=== PATIENT | female | born 1990 | race Hispanic/Latino ===

== ENCOUNTER 2017-02-28 09:06 | Inpatient (IN) | payer OTHER ==
[~2017-02-28] VITALS: Ht 154.9 cm; Wt 108.0 kg
--- OUTSIDE RECORDS SUMMARY | ~2017-02-28 | XMS ---
Demographics + + + | Address | [facility] [address] | | | [place] [address] | + + + | Preferred Language [...] + + + | Address | [address] | | | [place] [address] | + + + | Phone | | + + + Care Team Providers + + + + | Care Business Banking Sales Assistant Name | Role | Phone | + + + + Unavailable | Unavailable | + + + + PROBLEMS +---------+ + + +--------+ + + | Type | Condition | ICD9-CM | [id number] | Onset | Condition | SNOMED | | | | Code | Code | Dates | Status | Code | +---------+ + + +--------+ + + | Problem | Encounter | Z34.90 | | | Active | [id number] | | | for | | | [...] available PLAN OF CARE VITAL SIGNS MEDICATIONS + + + + + + + +--------+ | Medicati | Instruct | Dosage | Frequenc | Start | End Date | Duration | Status | | on | ions | | y | Date | | | | + + + + + + + +--------+ | Accu-Valencia | | as | | Jan, | | 99 | Active | | k Tessa | | directed | | 2016 | | | | | Plus | | | | | | | | | w/Device | | | | | | | | + + + + + + + +--------+ | Lancets | | as | | 22 Herman, | | 30 | Active | | - | | directed | | 2016 | | day(s) | | + + + + + + + +--------+ | Lancet | | as | | [address], | | 99 | Active | | Device - | | directed | | 2016 | | | | + + + + + + + +--------+ | Accu-Valencia | In Vitro | as | | 22 Herman, | | 1 month | Active | | k Tessa | four | directed | | 2016 | | | | | Plus - | times | | | | | | | | | daily | | | | | | | + + + + + + + +--------+ RESULTS No Results PROCEDURES No Known procedures IMMUNIZATIONS No Known Immunizations"
--- OUTSIDE RECORDS SUMMARY | ~2017-02-28 | XMS ---
Demographics + + + | Address | [facility] [address] | | | [place] [address] | + + + | Preferred Language | Unknown | + + + | Marital Status | Unknown | + + + | Oriental Orthodox Affiliation | Unknown | + + + | Race | Unknown | + + + | Ethnic Group | Unknown | + + + Author + + + | Author | [facility] | + + + | Organization | [facility] | + + + | Address | [address] | | | [place] [address] | + + + | Phone | | + + + Care Team Providers + + + + | Care Health Care Marketing Manager Name | Role | Phone | + + + + Unavailable | Unavailable | + + + + PROBLEMS +---------+ + + +--------+ + + | Type | Condition | ICD9-CM | [id number] | Onset | Condition | SNOMED | | | | Code | Code | Dates | Status | Code | +---------+ + + +--------+ + + | Problem | Encounter | Z34.90 | | | Active | [id number] | | | for | | | [...]
--- OUTSIDE RECORDS SUMMARY | ~2017-02-28 | XMS ---
Demographics + + + | Address | [facility] [address] | | | [place] [address] | + + + | Preferred Language | Unknown | + + + | Marital Status | Unknown | + + + | Christian Affiliation | Unknown | + + + | Race | Unknown | + + + | Ethnic Group | Unknown | + + + Author + + + | Author | [facility] | + + + | Organization | [facility] | + + + | Address | [address] | | | [place] [address] | + + + | Phone | | + + + Care Team Providers + + + + | Care Pattern Grader Name | Role | Phone | + + + + Unavailable | Unavailable | + + + + PROBLEMS +---------+ + + +--------+ + + | Type | Condition | ICD9-CM | [id number] | Onset | Condition | SNOMED | | | | Code | Code | Dates | Status | Code | +---------+ + + +--------+ + + | Problem | Encounter | Z34.90 | | | Active | [id number] | | | for | | | [...]
[~2017-02-28 09:06] MED LIST: GLYBURIDE1.25 MG PO
== END 2017-03-01 16:50 | disposition home or self-care (01) | DRG 775 ==
LOC: FBCO 09:06 → FBC 09:20
PROVIDERS: ADMIT Obstetrics & Gynecology
PROC: 10E0XZZ Delivery of Products of Conception, External Approach (ICD-10-PCS; principal; 2017-02-28)
PROC: 3E0S3BZ Introduction of Anesthetic Agent into Epidural Space, Percutaneous Approach (ICD-10-PCS; 2017-02-28)
PROC: 00HU03Z Insertion of Infusion Device into Spinal Canal, Open Approach (ICD-10-PCS; 2017-02-28)
DX: O60.14X0 Preterm labor third trimester with preterm delivery third trimester, not applicable or unspecified (principal); O69.81X0 Labor and delivery complicated by cord around neck, without compression, not applicable or unspecified; Z3A.36 36 weeks gestation of pregnancy; Z37.0 Single live birth; O24.425 Gestational diabetes mellitus in childbirth, controlled by oral hypoglycemic drugs; O42.013 Preterm premature rupture of membranes, onset of labor within 24 hours of rupture, third trimester
CPT/HCPCS: 01960; 36415; 85027; J2590; J2795; J7120

== ENCOUNTER 2017-10-29 17:39 | Emergency (ER) | payer OTHER ==
[~2017-10-29] VITALS: Ht 154.9 cm; Wt 107.5 kg
--- OUTSIDE RECORDS SUMMARY | 2017-10-29 18:13 | XMS | Clinical Summary ---
Demographics + + + | Address | [address] | | | [place] [address] | + + + | Home Phone | | + + + | Preferred Language | Unknown | + + + | Marital Status | Unknown | + + + | Orthodox Affiliation | Unknown | + + + | Race | Unknown | + + + | Ethnic Group | Unknown | + + + Author + + + | Author | [facility] | + + + | Organization | [facility] | + + + | Address | Unknown | + + + | Phone | Unavailable | + + + Care Team Providers + +------+ + | Care Wool Merchant Name | Role | Phone | + +------+ + | Unknown, Physician | PP | Unavailable | + +------+ + Allergies Not on File Current Medications Not on file Active Problems + + + | Problem | Noted Date | + + + | Abnormal findings on screening of mother | 08/21/2014 | + + + + + | Overview: Pt with elevated Down's risk on quad screen | | (1:31)US showed shortened FL and HLNIPS drawnPt counseled for | | over 50% of total face to face time of 30 min Last Assessment & | | Plan: Pt with elevated Down's risk on quad screen (1:31)US | | showed shortened FL and HLNIPS drawnPt counseled for over 50% of | | total face to face time of 30 min | |NIPS drawn | |Pt counseled for over 50% of total face to face time of 30 min | + + Social History + +-------+ +--------+------+ | Tobacco Use | Types | Packs/Day | Years | Date | | | | | Used | | + +-------+ +--------+------+ | Never Assessed | | | | | + +-------+ +--------+------+ + + + | Sex Assigned at | Date Recorded | | | | + + + | Not on file | | + + + Plan of Treatment + + + + + | Health Maintenance | Due Date | Last Done | Comments | + + + + + | HIV Screening | | | | | | 4 | | | + + + + + | Tetanus | | | | | | 8 | | | + + + + + | Cervical Cancer | | | | | Screening | 0 | | | + + + + + | IMM Influenza (#1) | | | | | | 7 | | | + + + + + Results Not on filefrom Last 3 Months"
--- OUTSIDE RECORDS SUMMARY | 2017-10-29 18:13 | XMS ---
Demographics + + + | Address | [facility] [address] | | | [place] [address] | + + + | Preferred Language | Unknown | + + + | Marital Status | Unknown | + + + | Catholic Affiliation | Unknown | + + + | Race | Unknown | + + + | Ethnic Group | Unknown | + + + Author + + + | Author | [facility] | + + + | Organization | [facility] | + + + | Address | [address] | | | [place] [address] | + + + | Phone | | + + + Care Team Providers + + + + | Care Legal Instructor Name | Role | Phone | + + + + Unavailable | Unavailable | + + + + PROBLEMS +---------+ + + +--------+ + + | Type | Condition | ICD9-CM | [id number] | Onset | Condition | SNOMED | | | | Code | Code | Dates | Status | Code | +---------+ + + +--------+ + + | Problem | Encounter | Z34.90 | | | Active | [id number] | | | for | | | | | | | | supervisio | | | | | | | | n of | | | | | | | | normal | | | | | | | | | | | | | | +---------+ + + +--------+ + + ALLERGIES Unknown Allergies SOCIAL HISTORY No smoking Hx information available PLAN OF CARE VITAL SIGNS MEDICATIONS Unknown Medications RESULTS No Results PROCEDURES No Known procedures IMMUNIZATIONS No Known Immunizations"
--- OUTSIDE RECORDS SUMMARY | 2017-10-29 18:13 | XMS | Clinical Summary ---
Demographics + + + | Address | [address] | | | [place] [address] | + + + | Home Phone | | + + + | Preferred Language | Unknown | + + + | Marital Status | Unknown | + + + | Zoroastrianism Affiliation | Unknown | + + + [...] Team Providers + +------+ + | Care Active Directory Systems Administrator Name | Role | Phone | + [...]
--- OUTSIDE RECORDS SUMMARY | 2017-10-29 18:13 | XMS ---
Demographics + + + | Address | [facility] [address] | | | [place] [address] | + + + | Preferred Language | Unknown | + + + | Marital Status | Unknown | + + + | Latter-Day Affiliation | Unknown | + + + | Race | Unknown | + + + | Ethnic Group | Unknown | + + + Author + + + | Author | [facility] | + + + | Organization | [facility] | + + + | Address | [address] | | | [place] [address] | + + + | Phone | | + + + Care Team Providers + + + + | Care Steam Clothes Press Operator Name | Role | Phone | + + + + Unavailable | Unavailable | + + + + PROBLEMS Unknown Problems ALLERGIES + + + + +---------+ | Substance | Reaction | Event Type | Date | Status | + + + + +---------+ | Kyler | Unknown | Non Drug | Feb, | Unknown | | | | Allergy | | | + + + + +---------+ SOCIAL HISTORY No smoking Hx information available PLAN OF CARE + +---------+ | Activity | Details | + +---------+ +---+ | | +---+ + + + | Follow Up | 4 Weeks Reason:null | + + + VITAL SIGNS + + + + | Height | 61 in | 2017-03-15 | + + + + | Weight | 215 lbs | 2017-03-15 | + + + + | BMI | 40.62 kg/m2 | 2017-03-15 | + + + + | Temperature | 98.4 degrees Fahrenheit | 2017-03-15 | + + + + | Heart Rate | 100 /min | 2017-03-15 | + + + + | Blood pressure systolic | 106 mm Hg | 2017-03-15 | + + + + | Blood pressure diastolic | 70 mm Hg | 2017-03-15 | + + + + MEDICATIONS + + +--------+ +--------+ + +--------+ | Medicati | Instruct | Dosage | Frequenc | Start | End Date | Duration | Status | | on | ions | | y | Date | | | | + + +--------+ +--------+ + +--------+ | | | | | | | | Active | | 28-0.8 | | | | | | | | | MG | | | | | | | | + + +--------+ +--------+ + +--------+ RESULTS No Results PROCEDURES + + + + + | Procedure | Date Ordered | Related Diagnosis | Body Site | + + + + + | visit | March 15, 2017 | | | + + + + + IMMUNIZATIONS No Known Immunizations"
--- OUTSIDE RECORDS SUMMARY | 2017-10-29 18:13 | XMS ---
Demographics + + + | Address | [facility] [address] | | | [place] [address] | + + + | Preferred Language | Unknown | + + + | Marital Status | Unknown | + + + | Jain Affiliation | Unknown | + + + | Race | Unknown | + + + | Ethnic Group | Unknown | + + + Author + + + | Author | [facility] | + + + | Organization | [facility] | + + + | Address | [address] | | | [place] [address] | + + + | Phone | | + + + Care Team Providers + + + + | Care Senior Search Marketing Analyst Name | Role | Phone | + + + + Unavailable | Unavailable | + + + + PROBLEMS +---------+ + + +--------+ + + | Type | Condition | ICD9-CM | [id number] | Onset | Condition | SNOMED | | | | Code | Code | Dates | Status | Code | +---------+ + + +--------+ + + | Problem | Encounter | Z34.90 | | | Active | [phone] | | | for | | | [...]
[2017-10-29] MEDS ORDERED: CODEINE SULFATE30 MG PO (18:23)
[2017-10-29] MEDS ORDERED: PENICILLIN V P500 MG PO (18:23)
== END 2017-10-29 18:50 | disposition home or self-care (01) ==
LOC: ED 17:39
DX: K08.89 Other specified disorders of teeth and supporting structures (principal); Z79.899 Other long term (current) drug therapy
CPT/HCPCS: 99283

== ENCOUNTER 2021-10-02 03:16 | Inpatient (IN) | payer OTHER ==
[~2021-10-02] VITALS: Ht 154.9 cm; Wt 110.2 kg
[~2021-10-02 03:16] MED LIST changes: +CODEINE SULFATE30 MG PO; +PENICILLIN V P500 MG PO
--- NOTE | 2021-10-02 03:48 | NUR ---
RT COLLECTED RAPID COVID 19 SWAB WITH NO COMPLICATIONS AT THIS TIME.
--- NOTE | 2021-10-02 08:44 | PR ---
[facility] [address] [facility] [place], [place] [address] Signed Progress Notes IP Datetime Report Generated by CPN: 10/02/2021 08:44 PROGRESS NOTES: [id number] Other Impressions: Slow progression of labor Plan: Augmentation VITAL SIGNS: [id number] Vital Signs: Reviewed; Within Normal Limits EXAM: [id number] Dilatation: 7.0 Effacement: 70 Station: -3 MEMBRANES: [id number] Comments: Covid Test Positive; no symptoms - standard precautions being used. Contractions spacing out and minimal progress past couple hours, so Pitocin Augmentation started. Patient comfortable with Epidural. Will continue monitoring. FETUS A: [id number] FHR Baseline: 130 Variability: Moderate 6-25bpm Accelerations: 15X15 FETUS B: [id number] Signing Physician: Long House MD Copies: ~ *Electronically Signed* 10/02/21 0844 LONG HOUSE MD PATIENT NAME: OKSANA SMITH PROGRESS NOTE DATE OF : 86 PHYSICIAN: LONG HOUSE MD RPT #: [id number] REPORT IS CONFIDENTIAL AND NOT TO BE RELEASED WITHOUT AUTHORIZATION
--- NOTE | 2021-10-02 10:16 | PR ---
[facility] [address] [facility] [place], [place] [address] Signed Progress Notes IP Datetime Report Generated by CPN: 10/02/2021 10:16 PROGRESS NOTES: [id number] Other Impressions: Slow progress Procedures: Intrauterine Pressure Catheter; Scalp Electrode Plan: Continue Present Management; Augmentation VITAL SIGNS: [id number] Vital Signs: Reviewed; Within Normal Limits EXAM: [id number] Dilatation: 7.0 Effacement: 80 Station: -3 MEMBRANES: [id number] Membranes Status: Ruptured Comments: IUPC and Scalp electrode placed to better monitor progress and status. Patient comfortable with Epidural. Continue increasing Pitocin as tolerated. FETUS A: [id number] FHR Baseline: 130 Variability: Moderate 6-25bpm Accelerations: 15X15 FETUS B: [id number] Signing Physician: Long House MD Copies: ~ *Electronically Signed* 10/02/21 1016 LONG HOUSE MD PATIENT NAME: OKSANA SMITH PROGRESS NOTE DATE OF : 88 PHYSICIAN: LONG HOUSE MD RPT #: [id number] REPORT IS CONFIDENTIAL AND NOT TO BE RELEASED WITHOUT AUTHORIZATION
--- NOTE | 2021-10-02 11:42 | PR ---
[facility] [address] [facility] [place], [place] [address] Signed Progress Notes IP Datetime Report Generated by CPN: 10/02/2021 11:42 PROGRESS NOTES: [id number] Other Impressions: Slow progression Procedures: Intrauterine Pressure Catheter; Scalp Electrode Plan: Continue Present Management; Augmentation VITAL SIGNS: [id number] Vital Signs: Reviewed; Within Normal Limits EXAM: [id number] Dilatation: 7.0 Effacement: 80 Station: -3 MEMBRANES: [id number] Membranes Status: Ruptured Comments: Comfortable with Epidural. Contractions finally getting stronger and closer, some cervical progress since last exam, but vertex still not well-applied to cervix. Contineu Pitocin augmentation. FETUS A: [id number] FHR Baseline: 130 Variability: Moderate 6-25bpm Accelerations: 15X15 FETUS B: [id number] Signing Physician: Long House MD Copies: ~ *Electronically Signed* 10/02/21 1142 LONG HOUSE MD PATIENT NAME: OKSANA SMITH PROGRESS NOTE DATE OF : 88 PHYSICIAN: LONG HOUSE MD RPT #: [id number] REPORT IS CONFIDENTIAL AND NOT TO BE RELEASED WITHOUT AUTHORIZATION
--- NOTE | 2021-10-03 13:15 | PR ---
[facility] [address] [place] [address] Signed PP Progress Notes Datetime Report Generated by CPN: 10/03/2021 13:15 SUBJECTIVE: [id number] Pain: Within Normal Limits Nausea/Vomiting: Denies Vital Signs: [id number] Vital Signs: Reviewed; Within Normal Limits Notable Details: PP Hgb/Hct = 11.9/36.4 FBS = 84 Lochia: Normal IMPRESSION/PLAN/PROCEDURES: [id number] Impression: Normal Progression Plan: Discharge Procedures: None Progress Notes: Doing well, without complaint, ready to go home. PP BS last night and FBS this am normal. Signing Physician: Long House MD Copies: ~ *Electronically Signed* 10/03/21 1315 LONG HOUSE MD PATIENT NAME: OKSANA SMITH PROGRESS NOTE DATE OF : 86 PHYSICIAN: LONG HOUSE MD RPT #: [id number] REPORT IS CONFIDENTIAL AND NOT TO BE RELEASED WITHOUT AUTHORIZATION
== END 2021-10-03 14:11 | disposition home or self-care (01) | DRG 805 ==
LOC: FBCO 03:16 → FBC 03:30
PROVIDERS: ADMIT General Practice; ATTEND General Practice
PROC: 10E0XZZ Delivery of Products of Conception, External Approach (ICD-10-PCS; principal; 2021-10-02)
PROC: 3E0R3BZ Introduction of Anesthetic Agent into Spinal Canal, Percutaneous Approach (ICD-10-PCS; 2021-10-02)
PROC: 00HU33Z Insertion of Infusion Device into Spinal Canal, Percutaneous Approach (ICD-10-PCS; 2021-10-02)
PROC: 8E0ZXY6 Isolation (ICD-10-PCS; 2021-10-02)
PROC: 3E0234Z Introduction of Serum, Toxoid and Vaccine into Muscle, Percutaneous Approach (ICD-10-PCS; 2021-10-02)
PROC: 0HQ9XZZ Repair Perineum Skin, External Approach (ICD-10-PCS; 2021-10-02)
DX: O98.52 Other viral diseases complicating childbirth (principal); U07.1 COVID-19; Z37.0 Single live birth; Z3A.00 Weeks of gestation of pregnancy not specified; O69.1XX0 Labor and delivery complicated by cord around neck, with compression, not applicable or unspecified; Z3A.38 38 weeks gestation of pregnancy; O24.429 Gestational diabetes mellitus in childbirth, unspecified control; Z91.040 Latex allergy status; O26.893 Other specified pregnancy related conditions, third trimester; Z67.21 Type B blood, Rh negative; O70.0 First degree perineal laceration during delivery
CPT/HCPCS: 01960; 36415; 83030; 85027; 86850; 86900; 86901; A9270; C9803; J2590; J2790; J2795; J3010; J7042; J7121; U0003